=== PATIENT | female | born 1965 | race Two or more races ===

== ENCOUNTER 2016-12-03 00:58 | Emergency (ER) | payer OTHER ==
[2016-12-03 01:22] VITALS: TEMP 98.4
[2016-12-03] MEDS ORDERED: NS 1,000 ML IV ONE (01:54)
[2016-12-03] MEDS ORDERED: HYDROmorphONE/DILAUDID 1 MG/ML SYR ONE (02:10)
[2016-12-03] MEDS ORDERED: ONDANSETRON 4 MG/2 ML VIAL ONE (02:10)
[2016-12-03] MEDS ORDERED: ONDANSETRON 4 MG/2 ML VIAL IVP ONE (02:18)
[2016-12-03] MEDS ORDERED: HYDROmorphONE/DILAUDID 1 MG/ML SYR IVP ONE (02:18)
[2016-12-03 02:27] LABS: % IMMATURE GRANULYOCYTES 0.3 % (0.0-1.1); ABSOLUTE IMMATURE GRANULOCYTES 0.04 10^3/uL (0.00-0.10); ADD DIFF? NO; ADD MORPH? NO; ADD SCAN? NO; ATYPICAL LYMPHOCYTE FLAG 10 (0-99); FRAGMENT RBC FLAG 0 (0-99); HEMATOCRIT 45.1 % (38.0-47.0); HEMOGLOBIN 15.5 g/dL (12.6-16.3); LEFT SHIFT FLG 0 (0-99); LIPEMIA HEMOLYSIS FLAG 90 (0-99); MEAN CELL HEMOGLOBIN 29.9 pg (27.9-34.1); MEAN CELL HEMOGLOBIN CONCENTR. 34.4 g/dL (32.4-36.7); MEAN CELL VOLUME 86.9 fL (81.5-99.8); MEAN PLATELET VOLUME 9.6 fL (8.7-11.7); PLATELET CLUMPS FLAG 0 (0-99); PLATELET COUNT 162 10^3/uL (150-400); RED BLOOD CELL COUNT 5.19 10^6/uL (4.18-5.33)
[2016-12-03] MEDS ORDERED: fentaNYL 100 MCG/2 ML INJ ONE (02:29)
[2016-12-03] MEDS ORDERED: fentaNYL 100 MCG/2 ML INJ IVP ONE (02:35)
[2016-12-03 02:40] LABS: CHLORIDE 103 mEq/L (97-110); SODIUM 141 mEq/L (134-144)
[2016-12-03 02:41] LABS: ALANINE AMINOTRANSFERASE 43 IU/L (9-52); ALBUMIN 4.3 g/dL (3.5-5.0); ALKALINE PHOSPHATASE 110 IU/L (38-126); ANION GAP 10 mEq/L (8-16); ASPARTATE AMINOTRANSFERASE 25 IU/L (14-46); BILIRUBIN,TOTAL 0.8 mg/dL (0.1-1.4); BILIRUBIN-CONJUGATED 0.2 mg/dL (0.0-0.5); BILIRUBIN-UNCONJUGATED 0.6 mg/dL (0.0-1.1); CALCIUM 9.7 mg/dL (8.5-10.4); CARBON DIOXIDE 28 mEq/l (22-31); CREATININE 0.5 mg/dL (0.6-1.0); GLOMERULAR FILTRATION RATE > 60; GLUCOSE 121 mg/dL (70-100); TOTAL PROTEIN 8.2 g/dL (6.3-8.2)
[2016-12-03] MEDS ORDERED: IOPAMIDOL (ISOVUE-300) 100 ML BTL IV ONE (02:57)
[2016-12-03] MEDS ORDERED: KETOROLAC 30 MG/1 ML SDV IVP ONE (03:37)
[2016-12-03] MEDS ORDERED: PROMETHAZINE HCL 25 MG/ML INJ ONE (04:10)
[2016-12-03] MEDS ORDERED: PROMETHAZINE HCL 25 MG/ML INJ IVP ONE (04:15)
[2016-12-03] MEDS ORDERED: ONDANSETRON 4MG PREPACK#2 BTL TAKEHOME ONE (04:17)
--- NOTE | 2016-12-03 05:11 | EDPHY ---
H & P Stated Complaint: c/o back/abd pain x 1 hr, also c/o tooth pain Time Seen by Provider: 12/03/16 02:40 HPI/ROS: Iranian phone spanish interpreter used. HPI The patient presents with epigastric abdominal pain that began at about 11pm tonight while resting. The pain is achy, radiates to her back, has been constant and started suddenly. It is associated with vomiting and feels like her previous pancreatitis. She is also complaining of toothache. REVIEW OF SYSTEMS Constitutional: No fever, no chills. Eyes: No discharge. ENT: No sore throat. Cardiovascular: No chest pain, no palpitations. Respiratory: No cough, no shortness of breath. Gastrointestinal: See HPI Genitourinary: No hematuria. Musculoskeletal: No back pain. Skin: No rashes. Neurological: No headache. PMHx: pancreatitis, hx of cholecystectomy Soc Hx: housed with family, occ EtOH PHYSICAL General Appearance: Alert, no distress Eyes: Pupils equal and round no pallor or injection ENT, Mouth: Mucous membranes moist, no areas of fluctuance or redness in the mouth Respiratory: There are no retractions, lungs are clear to auscultation Cardiovascular: tachycardic rate and reg rhythm Gastrointestinal: Abdomen is soft with mild tenderness in the epigastrium, no masses, bowel sounds normal Neurological: A&O, moves all extremities Skin: Warm and dry, no rashes Musculoskeletal: Neck is supple non tender Extremities: symmetrical, full range of motion Psychiatric: Patient is oriented X 3, there is no agitation Source: Patient - Medical/Surgical History Hx Asthma: No Hx Chronic Respiratory Disease: No Hx Diabetes: No Hx Cardiac Disease: No Hx Renal Disease: No Hx Cirrhosis: No Hx Alcoholism: No Hx HIV/AIDS: No Hx Splenectomy or Spleen Trauma: No Other PMH: Hyesterectomy, cholecystectomy/thyroid surg - hypothyroid, pancreatitis - Social History Smoking Status: Former smoker Constitutional: Initial Vital Signs Temperature (C) 36.9 C 12/03/16 01:11 Heart Rate 106 H 12/03/16 01:11 Respiratory Rate 22 H 12/03/16 01:11 Blood Pressure 122/100 H 12/03/16 01:11 O2 Sat (%) 97 12/03/16 01:11 O2 Delivery Mode Room Air O2 (L/minute) 2 Allergies/Adverse Reactions: No Known Allergies Allergy (Verified 12/03/16 01:22) Home Medications: Medication Instructions Recorded Acetaminophen [Tylenol 325mg (*)] 325 mg PO DAILY PRN 08/23/16 Levothyroxine [Synthroid 175 mcg 175 mcg PO DAILY06 08/23/16 (*)] Hydrocodon-Acetaminophen 5-325 12/03/16 Ondansetron Odt [Zofran Odt 4 mg 4 mg PO Q4 PRN #10 tab 12/03/16 (*)] Medical Decision Making - Diagnostics Imaging: CT abd/pel with IV contrast: Possible enteritis, fatty liver. Discussed with Dr Ram of radiology. Differential Diagnosis: This is a 51 yo F with hx of pancreatitis, cholecystectomy, who presents with epigastric abd pain and vomiting for several hours. On exam, she is somewhat tachycardic with tenderness in her epigastrium. She is also complaining of tooth pain, however, I do not appreciate any dental infection/abscess. DDx includes pancreatitis, gastritis, gastroenteritis, retained gallstone. In the ER, pt was given pain medication and antiemetics with resolution of her pain. Her vital signs normalized. CT scan was performed after labs returned and were unrevealing. This showed enteritis. This is likely the cause of the patients pain.She felt well enough to go home and was discharged in good condition. - Data Points Laboratory Results: Laboratory Results 12/03/16 02:15 12/03/16 02:15 Medications Given: Discontinued Medications Fentanyl (Sublimaze) 0 mcg IVP EDNOW ONE Stop: 12/03/16 02:36 Last Admin: 12/03/16 02:54 Dose: 75 mcg Hydromorphone HCl (Dilaudid) 1 mg IVP EDNOW ONE Stop: 12/03/16 02:19 Last Admin: 12/03/16 02:18 Dose: 1 mg Sodium Chloride (Ns) 1,000 mls @ 0 mls/hr IV ONCE ONE PRN Reason: Wide Open Stop: 12/03/16 01:55 Last Admin: 12/03/16 02:18 Dose: 1,000 mls Ketorolac Tromethamine (Toradol) 30 mg IVP EDNOW ONE Stop: 12/03/16 03:38 Last Admin: 12/03/16 03:40 Dose: 30 mg Morphine Sulfate (Morphine) 4 mg IVP EDNOW ONE Stop: 12/03/16 03:30 Last Admin: 12/03/16 04:16 Dose: Not Given Ondansetron HCl (Zofran) 4 mg IVP EDNOW ONE Stop: 12/03/16 02:19 Last Admin: 12/03/16 02:18 Dose: 4 mg Ondansetron HCl (Zofran Odt 4 Mg Prepack#2) 1 btl TAKEHOME EDNOW ONE Stop: 12/03/16 04:18 Last Admin: 12/03/16 05:29 Dose: 1 btl Promethazine HCl (Phenergan) 12.5 mg IVP EDNOW ONE Stop: 12/03/16 04:16 Last Admin: 12/03/16 04:17 Dose: 12.5 mg Departure - Departure Disposition: Home, Routine, Self-Care Clinical Impression: Upper abdominal pain Condition: Good Instructions: Ondansetron (By mouth), Acute Abdominal Pain (ED) Additional Instructions: Please follow-up with your doctor tomorrow. You should return to the emergency room if your worse in any way. Referrals: Maira Styles MD [Primary Care Provider] - As per Instructions Prescriptions: Ondansetron Odt [Zofran Odt 4 mg (*)] 4 mg PO Q4 PRN #10 tab PRN Reason: Nausea/Vomiting, Can'T Take Po
[2016-12-03 05:28] VITALS: BP 128/75; PULSE 88; RESP 16; O2SAT 92
== END 2016-12-03 05:27 | disposition home or self-care (01) ==
DX: R10.10 Upper abdominal pain, unspecified (principal); Z87.891 Personal history of nicotine dependence; Z90.49 Acquired absence of other specified parts of digestive tract; Z90.710 Acquired absence of both cervix and uterus
CPT/HCPCS: 96374; J1170; J1885; J2405; J2550; J3010; Q9967

== ENCOUNTER 2018-06-13 22:59 | Emergency (ER) | payer OTHER ==
[2018-06-13] MEDS ORDERED: ONDANSETRON 4 MG/2 ML VIAL IVP ONE (23:18)
[2018-06-13] MEDS ORDERED: NS 1,000 ML IV ONE (23:18)
--- NOTE | 2018-06-13 23:20 | EDPHY ---
H & P Time Seen by Provider: 06/13/18 23:10 HPI/ROS: Chief Complaint: Abdominal pain, nausea, vomiting HPI: 52-year-old woman presenting with upper abdominal pain, nausea vomiting for the last 2 days. Symptoms began yesterday as nausea. She has had pain today after multiple episodes of vomiting. She had a similar episode a week ago was seen at a [facility] told that everything was normal. She has also had similar symptoms and been seen here in the past and diagnosed with pancreatitis. No blood or coffee-grounds in her vomit. No dark tarry stools or blood in her stool. No lower abdominal pain. No fevers or chills. No cough. No chest pain or shortness of breath. ROS: 10 systems were reviewed and were negative except those elements noted in the HPI. PMH: Thyroid cancer, pancreatitis Social History: No smoking, no alcohol, no recreational drug use Family History: non-contributory Physical Exam: Gen: Awake, Alert, No Distress HEENT: Nose: no rhinorrhea Eyes: PERRLA, EOMI Mouth: Moist mucosa Neck: Supple, no JVD Chest: nontender, lungs clear to auscultation Heart: S1, S2 normal, no murmur Abd: Soft, moderate epigastric with mild right upper quadrant tenderness, no guarding Back: no CVA tenderness, no midline tenderness Ext: no edema, non-tender Skin: no rash Neuro: CN II-XII intact, Sensation grossly intact, Strength 5/5 in bilateral upper and lower extremities - Medical/Surgical History Hx Asthma: No Hx Chronic Respiratory Disease: No Hx Diabetes: No Hx Cardiac Disease: No Hx Renal Disease: No Hx Cirrhosis: No Hx Alcoholism: No Hx HIV/AIDS: No Hx Splenectomy or Spleen Trauma: No Other PMH: Hyesterectomy, cholecystectomy/thyroid surg - hypothyroid, pancreatitis - Social History Smoking Status: Former smoker Constitutional: Initial Vital Signs Temperature (C) 37.6 C 06/13/18 23:04 Heart Rate 120 H 06/13/18 23:04 Respiratory Rate 24 H 06/13/18 23:04 Blood Pressure 122/81 H 06/13/18 23:04 O2 Sat (%) 97 06/13/18 23:04 O2 Delivery Mode Room Air O2 (L/minute) 2 Allergies/Adverse Reactions: No Known Allergies Allergy (Verified 09/11/18 23:04) Home Medications: Medication Instructions Recorded Acetaminophen [Tylenol 325mg (*)] 325 mg PO DAILY PRN 08/23/16 Levothyroxine [Synthroid 175 mcg 175 mcg PO DAILY06 08/23/16 (*)] Hydrocodon-Acetaminophen 5-325 12/03/16 Ondansetron Odt [Zofran Odt 4 mg 4 mg PO Q4 PRN #10 tab 12/03/16 (*)] Medical Decision Making ED Course/Re-evaluation: Patient's laboratory evaluations show mild transaminitis, otherwise negative. She has had her gallbladder out. Abdomen is soft and benign. Does not have a leukocytosis. Certainly does not have a surgical abdomen. Will discharge with follow-up with her primary care physician at [facility] and referral to GI. - Data Points Laboratory Results: Laboratory Results 06/13/18 23:21 06/13/18 23:21 06/13/18 06/13/18 23:21 23:21 WBC 10.72 10^3/uL H 10^3/uL (3.80-9.50) RBC 4.93 10^6/uL 10^6/uL (4.18-5.33) Hgb 15.0 g/dL g/dL (12.6-16.3) Hct 44.8 % % (38.0-47.0) MCV 90.9 fL fL (81.5-99.8) MCH 30.4 pg pg (27.9-34.1) MCHC 33.5 g/dL g/dL (32.4-36.7) RDW 13.1 % % (11.5-15.2) Plt Count 76 10^3/uL L 10^3/uL (150-400) MPV 9.9 fL fL (8.7-11.7) Neut % (Auto) 84.1 % H % (39.3-74.2) Lymph % (Auto) 9.7 % L % (15.0-45.0) [place] % (Auto) 5.3 % % (4.5-13.0) Eos % (Auto) 0.1 % L % (0.6-7.6) Baso % (Auto) 0.5 % % (0.3-1.7) Nucleat RBC Rel Count 0.0 % % (0.0-0.2) Absolute Neuts (auto) 9.02 10^3/uL H 10^3/uL (1.70-6.50) Absolute Lymphs (auto) 1.04 10^3/uL 10^3/uL (1.00-3.00) Absolute Monos (auto) 0.57 10^3/uL 10^3/uL (0.30-0.80) Absolute Eos (auto) 0.01 10^3/uL L 10^3/uL (0.03-0.40) Absolute Basos (auto) 0.05 10^3/uL 10^3/uL (0.02-0.10) Absolute Nucleated RBC 0.00 10^3/uL 10^3/uL (0-0.01) Immature Gran % 0.3 % % (0.0-1.1) Immature Gran # 0.03 10^3/uL 10^3/uL (0.00-0.10) Sodium 140 mEq/L mEq/L (135-145) Potassium 4.3 mEq/L mEq/L (3.3-5.0) Chloride 107 mEq/L mEq/L (97-110) Carbon Dioxide 22 mEq/l mEq/l (22-31) Anion Gap 11 mEq/L mEq/L (8-16) BUN 10 mg/dL mg/dL (7-23) Creatinine 0.6 mg/dL mg/dL (0.6-1.0) Estimated GFR > 60 Glucose 146 mg/dL H mg/dL (70-100) Calcium 8.7 mg/dL mg/dL (8.5-10.4) Total Bilirubin 1.1 mg/dL mg/dL (0.1-1.4) AST 104 IU/L H IU/L (14-46) ALT 79 IU/L H IU/L (9-52) Alkaline Phosphatase 88 IU/L IU/L (38-126) Total Protein 7.0 g/dL g/dL (6.3-8.2) Albumin 3.9 g/dL g/dL (3.5-5.0) Lipase 54 IU/L IU/L (23-300) Medications Given: Discontinued Medications Al Hydroxide/Mg Hydroxide (Maalox Susp) 30 ml PO ONCE ONE Stop: 09/12/18 01:32 Last Admin: 06/14/18 01:48 Dose: 30 ml Famotidine (Pepcid) 20 mg IVP EDNOW ONE Stop: 06/13/18 23:23 Last Admin: 06/13/18 23:29 Dose: 20 mg Sodium Chloride (Ns) 1,000 mls @ 0 mls/hr IV ONCE ONE; Wide Open PRN Reason: Protocol Stop: 06/13/18 23:19 Last Admin: 06/13/18 23:24 Dose: 1,000 mls Ketorolac Tromethamine (Toradol) 15 mg IVP EDNOW ONE Stop: 06/14/18 00:28 Last Admin: 06/14/18 00:29 Dose: 15 mg Lidocaine (Lidocaine 2% Viscous) 15 ml PO ONCE ONE Stop: 06/14/18 01:32 Last Admin: 06/14/18 01:48 Dose: 15 ml Ondansetron HCl (Zofran) 4 mg IVP EDNOW ONE Stop: 06/13/18 23:19 Last Admin: 06/13/18 23:29 Dose: 4 mg Ondansetron HCl (Zofran) 4 mg IVP EDNOW ONE Stop: 06/14/18 00:28 Last Admin: 06/14/18 00:29 Dose: 4 mg Departure - Departure Disposition: Home, Routine, Self-Care Clinical Impression: Abdominal pain Condition: Good Instructions: Abdominal Pain (ED) Additional Instructions: Follow up with primary care physician and with a christian science nurse in 2-3 days for further evaluation. Return to the emergency department for worsening abdominal pain, fevers, chills , dark tarry stools, vomiting blood, or any other concerns. Referrals: Maira Styles MD [Primary Care Provider] - As per Instructions Jeff Obregon MD, FACG [Medical Doctor] - As per Instructions
[2018-06-13] MEDS ORDERED: FAMOTIDINE 20 MG/2 ML SDV IVP ONE (23:22)
[2018-06-13 23:35] LABS: PLATELET COUNT 76 10^3/uL (150-400)
[2018-06-14] MEDS ORDERED: KETOROLAC 15 MG/1 ML SDV IVP ONE (00:27)
[2018-06-14] MEDS ORDERED: ONDANSETRON 4 MG/2 ML VIAL IVP ONE (00:27)
[2018-06-14] MEDS ORDERED: LIDOCAINE 2% VISCOUS 15 ML UDCUP PO ONE (01:31)
[2018-06-14] MEDS ORDERED: MAG HYDROX/AL HYDROX/SIMETH 30 ML UDCUP PO ONE (01:31)
[2018-06-14 02:05] VITALS: BP 141/90
== END 2018-06-14 02:29 | disposition home or self-care (01) ==
DX: R10.9 Unspecified abdominal pain (principal); R11.2 Nausea with vomiting, unspecified; Z85.850 Personal history of malignant neoplasm of thyroid
CPT/HCPCS: 96374; J1885; J2405

== ENCOUNTER → 2019-02-06 | Outpatient (CLI) | payer OTHER | LOC: FIMAGING 09:57 | PROVIDERS: ATTEND Physician Assistant | DX: M79.662 Pain in left lower leg (principal); B35.4 Tinea corporis ==

== ENCOUNTER → 2019-02-07 | Outpatient (CLI) | payer OTHER | LOC: CIMAGING 17:55 | PROVIDERS: ATTEND Physician Assistant | DX: M79.89 Other specified soft tissue disorders (principal); Z90.89 Acquired absence of other organs | CPT/HCPCS: 76536-PO ==